=== PATIENT | female | born 1965 | race African-American/Black ===

== ENCOUNTER 2021-11-29 12:34 | Emergency (ER) | payer OTHER ==
[~2021-11-29] VITALS: Ht 162.6 cm; Wt 63.0 kg
[2021-11-29 15:02] LABS: CHLORIDE 107 mEq/L (98-107)
[2021-11-29 15:11] LABS: BASOPHILS % 0.3 % (0.0-2.0); EOSINOPHILS % 0.3 % (0.0-5.0); HEMATOCRIT. 36.4 % (36.0-48.0); HEMOGLOBIN. 12.4 g/dL (12.0-16.0); LYMPHOCYTES % 20.4 % (20.0-50.0); MEAN CORPUSCULAR HEMOGLOBIN 31.8 pg (28.0-32.0); MEAN CORPUSCULAR VOLUME 93.2 fL (81.0-99.0); MEAN PLATELET VOLUME 9.3 fl (7.4-10.4); MONOCYTES % 5.8 % (2.0-8.0); NEUTROPHILS % 73.2 % (40.0-76.0); PLATELET 217 x1000/uL (130-400); RED BLOOD CELL COUNT 3.91 mill/uL (4.2-5.4); RED CELL DISTRIBUTION WIDTH 13.9 % (11.6-14.6)
[2021-11-29 18:24] VITALS: BP 170/99
== END 2021-11-29 18:45 | disposition home or self-care (01) ==
LOC: ER 12:34
DX: F41.0 Panic disorder [episodic paroxysmal anxiety] (principal); R06.02 Shortness of breath; R42 Dizziness and giddiness; R00.2 Palpitations; Z63.79 Other stressful life events affecting family and household
CPT/HCPCS: 36415; 71045; 80053; 85025; 93005; 99285

== ENCOUNTER 2025-05-08 19:15 | Emergency (ER) | payer OTHER ==
[~2025-05-08] VITALS: Ht 165.1 cm; Wt 57.0 kg
[2025-05-08 19:20] VITALS: O2SAT 95
[2025-05-09 01:01] VITALS: BP 106/79; PULSE 104; RESP 16; TEMP 36.5; O2SAT 96
== END 2025-05-09 01:13 | disposition home or self-care (01) ==
LOC: ER 19:15
DX: Z43.1 Encounter for attention to gastrostomy (principal)
CPT/HCPCS: 71045; 99284